=== PATIENT | female | born 1925 | race Caucasian/White ===

== ENCOUNTER → 2017-06-23 | Outpatient (CLI) | payer MEDICARE, BC ==
[~2017-06-23] MED LIST: AMIO200 PO; AMLO5 PO; ASPI325 PO; ASPI81CH PO; Amlodipine Besyl5 MG PO; B Complex #11 EACH PO; CALC1.25T; CENTRUM COMPLE1 EACH; DABI150C; DOCU100 PO; ELIQUIS2.5 MG PO; ERGO400 PO; FAMO20 PO; FISH1000; FURO40 PO; HYDCHL25 PO; Hydrocodone-Ap1 EA23 PO; LISI5; Lisinopril2.5 MG; MELA3 PO; MULTI VITAMIN1 EACH PO; Norco 5-325 Ta1 EACH PO; PANT40 PO; POTCHL20ER PO; RABE20 PO; SPIHYD PO; VENL25 PO; VICODIN 5-3001 EACH PO; Zofran Odt4 MG SL; [UNRECOGNIZED DRUG - REMARK]
== END ==
LOC: LAB 14:04 → LAB SHORT 14:04
PROVIDERS: Obstetrics & Gynecology Gynecology
DX: Z91.89 Other specified personal risk factors, not elsewhere classified (principal)
CPT/HCPCS: 87624; G0123